=== PATIENT | female | born 1980 | race Caucasian/White ===

== ENCOUNTER → 2017-04-21 | Outpatient (CLI) | payer BC ==
[~2017-04-21] MED LIST: ALLERGY SL; BCP TD; LEVOTHROID0.175 MG PO; LEXAPRO10 MG PO; SOLIA 0.15 MG-01 TAB PO
== END ==
LOC: COL.VAS 12:15
DX: O24.012 Pre-existing type 1 diabetes mellitus, in pregnancy, second trimester (principal); O99.42 Diseases of the circulatory system complicating childbirth; I08.3 Combined rheumatic disorders of mitral, aortic and tricuspid valves; Z3A.21 21 weeks gestation of pregnancy

== ENCOUNTER 2017-07-04 22:14 | Inpatient (IN) | payer BC ==
[~2017-07-04] VITALS: Ht 165.1 cm; Wt 94.5 kg
[2017-07-04 22:45] VITALS: BP 162/96; PULSE 96; TEMP 98.2
[2017-07-04 23:00] VITALS: BP 159/90; PULSE 93; TEMP 98.2
[2017-07-04 23:20] VITALS: BP 263/90; PULSE 90
[2017-07-05] VITALS (63 sets, daily range): BP systolic 71–177; BP diastolic 34–109; PULSE 16–117; TEMP 97.4–98.1
[2017-07-05 00:30] LABS: BASO # 0.1 (0.0-0.2); BASO % 0.7 % (0.0-2.0); EOS # 0.3 (0.0-0.7); EOS % 1.8 % (0-4.0); GRAN # 10.3 (1.4-6.5); GRAN % 70.5 % (42.2-75.2); HEMATOCRIT 38.6 % (37.0-47.0); HEMOGLOBIN 13.1 g/dl (12.5-16.0); LYMPH # 2.7 (1.2-3.4); LYMPH % 18.3 % (20.0-51.0); MEAN CELL VOLUME 91 fl (80.0-100.0); MEAN CORPUSCULAR HEMOGLOBIN 31 pg (27.0-31.0); MEAN CORPUSCULAR HGB CONC 34 g/dl (33.0-37.0); MEAN PLATELET VOLUME 14.5 fl (7.4-10.4); MONO # 1.1 (0.1-0.6); MONO % 7.5 % (1.7-9.3); PLATELET COUNT 104 K/mm3 (130-400); RED BLOOD COUNT 4.25 M/mm3 (4.10-5.30); REDCELL DISTRIBUTION WIDTH-CV 12.7 % (11.5-14.5)
[2017-07-05 00:43] LABS: ALANINE AMINOTRANSFERASE 31 U/L (9-52); ALBUMIN 2.9 gm/dL (3.5-5.0); ALKALINE PHOSPHATASE 165 U/L (50-136); ANION GAP 9 mmol/L (7-16); AST,SGOT 30 U/L (15-37); BILIRUBIN,TOTAL < 0.1 mg/dL (0.0-1.0); BLOOD UREA NITROGEN 18 mg/dL (7-17); CALCIUM 8.8 mg/dL (8.4-10.2); CARBON DIOXIDE 20 mmol/L (22-30); CHLORIDE 104 mmol/L (98-107); GLUCOSE 282 mg/dL (74-106); POTASSIUM 3.7 mmol/L (3.4-5.0); SODIUM 133 mmol/L (137-145); TOTAL PROTEIN 5.8 gm/dL (6.4-8.2)
[2017-07-05 02:08] LABS: COLLECTION METHOD CLEAN CATCH
[2017-07-05 02:16] LABS: MUCOUS Present /lpf; PH 5 (5-8); URINE APPEARANCE Clear; URINE BACTERIA Rare /hpf; URINE BILIRUBIN Negative (NEGATIVE); URINE BLOOD 1+ (NEGATIVE); URINE COLOR Yellow; URINE GLUCOSE 2+ (NEGATIVE); URINE KETONE Negative (NEGATIVE); URINE LEUKOCYTE ESTERASE Negative (NEGATIVE); URINE NITRATE Negative (NEGATIVE); URINE PROTEIN(semi-quant) 2+ (NEGATIVE); URINE UROBILINOGEN Negative (NEGATIVE)
[2017-07-05 08:57] LABS: HEMATOCRIT 41.2 % (37.0-47.0); HEMOGLOBIN 14.2 g/dl (12.5-16.0); MEAN CELL VOLUME 90 fl (80.0-100.0); MEAN CORPUSCULAR HEMOGLOBIN 31 pg (27.0-31.0); MEAN CORPUSCULAR HGB CONC 35 g/dl (33.0-37.0); MEAN PLATELET VOLUME 13.9 fl (7.4-10.4); PLATELET COUNT 118 K/mm3 (130-400); RED BLOOD COUNT 4.59 M/mm3 (4.10-5.30); REDCELL DISTRIBUTION WIDTH-CV 12.5 % (11.5-14.5)
[2017-07-05 09:34] LABS: BAND 6 % (0-10); LYMPHOCYTE 12 % (20.0-51.0); NEUTROPHILS 77 % (42.0-75.2); PLATELET ESTIMATE DECREASED (NORMAL)
[2017-07-05] MEDS ORDERED: OSCAL 500 TAB500 MG PO (09:57)
[2017-07-05] MEDS ORDERED: PRENATAL FORMU1 EAC3 PO (09:58)
[2017-07-05] MEDS ORDERED: FOLIC ACID 40400 MCG PO (09:58)
[2017-07-05] MEDS ORDERED: ZYRTEC 10MG10 MG PO ×2 (09:59→10:00)
[2017-07-05] MEDS ORDERED: VITAMIN B-6100 MG PO (09:59)
[2017-07-05] MEDS ORDERED: ASPIRIN E.C. 8181 MG PO (10:01)
[2017-07-05] MEDS ORDERED: LEVEMIR100 U/ML SQ (10:02)
[2017-07-05] MEDS ORDERED: HUMALOG KW200 UNIT/1 SQ (10:04)
[2017-07-05 19:11] LABS: HEMATOCRIT 38.9 % (37.0-47.0); HEMOGLOBIN 12.9 g/dl (12.5-16.0); MEAN CELL VOLUME 92 fl (80.0-100.0); MEAN CORPUSCULAR HEMOGLOBIN 31 pg (27.0-31.0); MEAN CORPUSCULAR HGB CONC 33 g/dl (33.0-37.0); MEAN PLATELET VOLUME 14.4 fl (7.4-10.4); PLATELET COUNT 116 K/mm3 (130-400); RED BLOOD COUNT 4.21 M/mm3 (4.10-5.30); REDCELL DISTRIBUTION WIDTH-CV 12.7 % (11.5-14.5)
[2017-07-05 19:19] LABS: ALBUMIN 2.9 gm/dL (3.5-5.0); BILIRUBIN,TOTAL 0.2 mg/dL (0.0-1.0); CALCIUM 8.5 mg/dL (8.4-10.2); CREATININE, serum 1.01 mg/dL (0.52-1.25); POTASSIUM 4.1 mmol/L (3.4-5.0); TOTAL PROTEIN 5.9 gm/dL (6.4-8.2)
[2017-07-05 19:23] LABS: MAGNESIUM 7.2 mg/dL (1.6-2.3)
[2017-07-05 19:26] LABS: BAND 11 % (0-10); BASOPHIL 1 % (0-2); LYMPHOCYTE 9 % (20.0-51.0); NEUTROPHILS 78 % (42.0-75.2); PLATELET ESTIMATE NORMAL (NORMAL)
[2017-07-06] VITALS (24 sets, daily range): BP systolic 122–161; BP diastolic 62–85; PULSE 67–108; TEMP 97.4–98.3
[2017-07-06 07:18] LABS: MEAN CELL VOLUME 92 fl (80.0-100.0); MEAN CORPUSCULAR HGB CONC 34 g/dl (33.0-37.0); MEAN PLATELET VOLUME 13.9 fl (7.4-10.4); PLATELET COUNT 114 K/mm3 (130-400); RED BLOOD COUNT 3.79 M/mm3 (4.10-5.30); REDCELL DISTRIBUTION WIDTH-CV 12.6 % (11.5-14.5)
[2017-07-06 07:22] LABS: HEMATOCRIT 34.8 % (37.0-47.0); HEMOGLOBIN 11.7 g/dl (12.5-16.0); MEAN CORPUSCULAR HEMOGLOBIN 31 pg (27.0-31.0)
[2017-07-06 07:29] LABS: ALANINE AMINOTRANSFERASE 34 U/L (9-52); ALBUMIN 2.6 gm/dL (3.5-5.0); ALKALINE PHOSPHATASE 132 U/L (50-136); ANION GAP 7 mmol/L (7-16); AST,SGOT 41 U/L (15-37); BILIRUBIN,TOTAL < 0.1 mg/dL (0.0-1.0); BLOOD UREA NITROGEN 19 mg/dL (7-17); CALCIUM 8.5 mg/dL (8.4-10.2); CARBON DIOXIDE 23 mmol/L (22-30); CHLORIDE 100 mmol/L (98-107); CREATININE, serum 0.98 mg/dL (0.52-1.25); GLUCOSE 159 mg/dL (74-106); POTASSIUM 4.4 mmol/L (3.4-5.0); SODIUM 130 mmol/L (137-145); TOTAL PROTEIN 5.4 gm/dL (6.4-8.2)
[2017-07-06 07:39] LABS: BAND 6 % (0-10); LYMPHOCYTE 3 % (20.0-51.0); NEUTROPHILS 88 % (42.0-75.2); PLATELET ESTIMATE DECREASED (NORMAL)
[2017-07-07] VITALS (7 sets, daily range): BP systolic 120–142; BP diastolic 63–85; PULSE 68–83; TEMP 97.5–98.4
[2017-07-07 07:54] LABS: MEAN CELL VOLUME 92 fl (80.0-100.0); MEAN CORPUSCULAR HGB CONC 34 g/dl (33.0-37.0); MEAN PLATELET VOLUME 13.7 fl (7.4-10.4); PLATELET COUNT 110 K/mm3 (130-400); RED BLOOD COUNT 3.49 M/mm3 (4.10-5.30); REDCELL DISTRIBUTION WIDTH-CV 12.9 % (11.5-14.5)
[2017-07-07 08:08] LABS: ALANINE AMINOTRANSFERASE 36 U/L (9-52); ALBUMIN 2.4 gm/dL (3.5-5.0); ALKALINE PHOSPHATASE 104 U/L (50-136); ANION GAP 2 mmol/L (7-16); AST,SGOT 41 U/L (15-37); BILIRUBIN,TOTAL < 0.1 mg/dL (0.0-1.0); BLOOD UREA NITROGEN 24 mg/dL (7-17); CALCIUM 8.5 mg/dL (8.4-10.2); CARBON DIOXIDE 27 mmol/L (22-30); CHLORIDE 108 mmol/L (98-107); CREATININE, serum 0.83 mg/dL (0.52-1.25); GLUCOSE 40 mg/dL (74-106); SODIUM 136 mmol/L (137-145)
[2017-07-07 08:10] LABS: HEMATOCRIT 32.2 % (37.0-47.0); HEMOGLOBIN 10.8 g/dl (12.5-16.0); MEAN CORPUSCULAR HEMOGLOBIN 31 pg (27.0-31.0)
[2017-07-07 12:33] LABS: BAND 4 % (0-10); BASOPHIL 1 % (0-2); EOSINOPHIL 1 % (0-4); LYMPHOCYTE 25 % (20.0-51.0); NEUTROPHILS 67 % (42.0-75.2)
[2017-07-07 12:35] LABS: HYPOCHROMIA 1+; PLATELET ESTIMATE DECREASED (NORMAL)
[2017-07-08] MEDS ORDERED: PROCARDIA XL 3030 MG PO (08:52)
[2017-07-08] MEDS ORDERED: IBU600 MG PO (08:52)
[2017-07-08 09:27] VITALS: BP 140/87; PULSE 69
== END 2017-07-08 12:40 | disposition home health service (06) | DRG 774 ==
LOC: LDRO 22:14 → LDR 22:30 → OB 07-06 10:45
PROVIDERS: Obstetrics & Gynecology
PROC: 10E0XZZ Delivery of Products of Conception, External Approach (ICD-10-PCS; principal; 2017-07-05)
PROC: 0KQM0ZZ Repair Perineum Muscle, Open Approach (ICD-10-PCS; 2017-07-05)
PROC: 0HB9XZZ Excision of Perineum Skin, External Approach (ICD-10-PCS; 2017-07-05)
DX: O42.013 Preterm premature rupture of membranes, onset of labor within 24 hours of rupture, third trimester (principal); O24.02 Pre-existing type 1 diabetes mellitus, in childbirth; O36.0130 Maternal care for anti-D [Rh] antibodies, third trimester, not applicable or unspecified; E10.9 Type 1 diabetes mellitus without complications; O99.284 Endocrine, nutritional and metabolic diseases complicating childbirth; E03.9 Hypothyroidism, unspecified; O14.14 Severe pre-eclampsia complicating childbirth; O69.81X0 Labor and delivery complicated by cord around neck, without compression, not applicable or unspecified; O70.1 Second degree perineal laceration during delivery; N90.89 Other specified noninflammatory disorders of vulva and perineum; Z3A.34 34 weeks gestation of pregnancy; Z37.0 Single live birth; Z79.4 Long term (current) use of insulin
CPT/HCPCS: J0290; J0702; J2400; J2405; J2590; J2791; J3475; J7030

== ENCOUNTER → 2017-07-29 | Outpatient (CLI) | payer BC ==
[~2017-07-29] MED LIST changes: +ASPIRIN E.C. 8181 MG PO; +FOLIC ACID 40400 MCG PO; +HUMALOG KW200 UNIT/1 SQ; +IBU600 MG PO; +LEVEMIR100 U/ML SQ; +OSCAL 500 TAB500 MG PO; +PRENATAL FORMU1 EAC3 PO; +PROCARDIA XL 3030 MG PO; +VITAMIN B-6100 MG PO; +ZYRTEC 10MG10 MG PO
== END ==
LOC: LAC 11:59
DX: Z39.1 Encounter for care and examination of lactating mother (principal); Z71.89 Other specified counseling

== ENCOUNTER → 2017-11-24 | Outpatient (CLI) | payer BC | LOC: COL.RAD 11-23 07:30 | DX: M67.432 Ganglion, left wrist (principal) ==

== ENCOUNTER → 2017-12-17 | Outpatient (CLI) | payer BC | LOC: COL.RAD 13:30 | DX: M25.532 Pain in left wrist (principal) | CPT/HCPCS: J3301; Q9967 ==

== ENCOUNTER → 2020-02-14 | Outpatient (CLI) | payer BC | LOC: MC.RAD 09:08 | DX: Z12.31 Encounter for screening mammogram for malignant neoplasm of breast (principal); N63.20 Unspecified lump in the left breast, unspecified quadrant; N64.89 Other specified disorders of breast ==

== ENCOUNTER → 2020-02-16 | Outpatient (CLI) | payer BC | LOC: MC.RAD 13:54 | DX: N60.02 Solitary cyst of left breast (principal) ==

== ENCOUNTER → 2021-06-18 | Outpatient (CLI) | payer BC | LOC: MC.RAD 04-23 15:30 | DX: Z12.31 Encounter for screening mammogram for malignant neoplasm of breast (principal); N63.20 Unspecified lump in the left breast, unspecified quadrant; N64.89 Other specified disorders of breast ==

== ENCOUNTER → 2021-06-26 | Outpatient (CLI) | payer BC | LOC: MC.RAD 10:53 | DX: N60.02 Solitary cyst of left breast (principal) ==

== ENCOUNTER 2022-03-04 19:31 | Emergency (ER) | payer BC ==
[~2022-03-04] VITALS: Ht 162.6 cm; Wt 78.6 kg
[2022-03-04 19:48] VITALS: TEMP 98
[2022-03-04 21:08] LABS: COLLECTION METHOD CLEAN CATCH
[2022-03-04 21:13] LABS: BASO # 0.1 K/mm3 (0.0-0.2); BASO % 0.8 % (0.0-2.0); EOS # 0.2 K/mm3 (0.0-0.7); EOS % 2.7 % (0.0-4.0); GRAN # 4.9 K/mm3 (1.4-6.5); GRAN % 61.7 % (42.2-75.2); HEMATOCRIT 45.3 % (37.0-47.0); HEMOGLOBIN 15.4 g/dl (12.5-16.0); LYMPH # 1.8 K/mm3 (1.2-3.4); LYMPH % 22.6 % (20.0-51.0); MEAN CELL VOLUME 90 fl (80.0-100.0); MEAN CORPUSCULAR HEMOGLOBIN 31 pg (27-31); MEAN CORPUSCULAR HGB CONC 34 g/dl (33.0-37.0); MEAN PLATELET VOLUME 11.7 fl (7.4-10.4); MONO # 0.9 K/mm3 (0.1-0.6); MONO % 11.9 % (1.7-9.3); PLATELET COUNT 195 K/mm3 (130-400); RED BLOOD COUNT 5.01 M/mm3 (4.10-5.30); REDCELL DISTRIBUTION WIDTH-CV 12.6 % (11.5-14.5)
[2022-03-04 21:23] LABS: MUCOUS Present (NOT PRESENT); SQUAMOUS EPITHELIAL 0-2 /hpf (0-10); URINE BACTERIA Rare /hpf (NONE SEEN)
[2022-03-04 21:25] LABS: PH 5.5 (5.0-8.5); URINE APPEARANCE Clear (CLEAR/HAZY); URINE BLOOD 2+ (NEGATIVE); URINE COLOR Yellow (YELLOW); URINE GLUCOSE 2+ (NEGATIVE); URINE KETONE 4+ (NEGATIVE); URINE NITRATE Negative (NEGATIVE); URINE PROTEIN(semi-quant) Negative (NEGATIVE); URINE UROBILINOGEN 0.2 E.U/dL (0.2-1.0)
[2022-03-04 21:32] LABS: ALBUMIN 3.9 gm/dL (3.5-5.0); BILIRUBIN,TOTAL 0.3 mg/dL (0.2-1.2); C-REACTIVE PROTEIN 2.23 mg/dL (0.00-0.50); CALCIUM 8.9 mg/dL (8.4-10.2); CREATININE, serum 0.78 mg/dL (0.57-1.11); POTASSIUM 3.4 mmol/L (3.5-4.5); TOTAL PROTEIN 7.2 gm/dL (6.2-8.1)
[2022-03-05 01:30] VITALS: BP 140/84; PULSE 80
== END 2022-03-05 01:30 | disposition home or self-care (01) ==
LOC: COL.ER 19:31
PROVIDERS: Nurse Practitioner
DX: R10.11 Right upper quadrant pain (principal); J06.9 Acute upper respiratory infection, unspecified; J90 Pleural effusion, not elsewhere classified; E11.9 Type 2 diabetes mellitus without complications; Z32.02 Encounter for pregnancy test, result negative
CPT/HCPCS: J1170; J2405; J7030; Q9967

== ENCOUNTER → 2022-03-12 | Outpatient (CLI) | payer BC | LOC: COL.RAD 11:03 | DX: K76.9 Liver disease, unspecified (principal) | CPT/HCPCS: Q9967 ==

== ENCOUNTER → 2022-06-25 | Outpatient (CLI) | payer BC | LOC: MC.RAD 15:04 | DX: Z12.31 Encounter for screening mammogram for malignant neoplasm of breast (principal) ==

== ENCOUNTER → 2023-06-29 | Outpatient (CLI) | payer BC | LOC: MC.RAD 14:05 | DX: Z12.31 Encounter for screening mammogram for malignant neoplasm of breast (principal) ==